=== PATIENT | male | born 1990 | race American Indian/Alaskan Native ===

== ENCOUNTER 2020-09-08 22:22 | Emergency (ER) | payer SELFPAY ==
[2020-09-08 23:11] VITALS: BP 134/63
--- NOTE | 2020-09-09 01:50 | Emergency Department Report ---
- General Chief Complaint: Fever Stated Complaint: FEVER/THROAT RASPY Time Seen by Provider: 09/09/20 00:22 Source: patient Mode of arrival: Ambulatory Limitations: No Limitations - History of Present Illness MD Complaint: sore throat, nasal congestion -: Gradual Severity: moderate Quality: dull Consistency: constant Improves With: nothing Worsens With: nothing Context: sick contacts Associated Symptoms: denies other symptoms. denies: chills, diaphoresis, headache, shortness of breath, abdominal pain, nausea, confusion, right sweats, weight loss, epistaxis, hoarseness Treatments Prior to Arrival: none - Related Data Previous Rx's Medication Instructions Recorded Last Taken Type Amoxicillin/Potassium Clav 1 each PO BID #14 tablet 09/09/20 Unknown Rx [Augmentin 875-125 Tablet] Lidocaine Viscous 2% 5 ml MM Q3HR PRN #120 udc 09/09/20 Unknown Rx ED Review of Systems ROS: Stated complaint: FEVER/THROAT RASPY Other details as noted in HPI Comment: All other systems reviewed and negative ED Past Medical Hx - Past Medical History Previous Medical History?: No - Surgical History Past Surgical History?: No - Social History Smoking Status: Current Every Day Smoker Substance Use Type: Alcohol - Medications Home Medications: Home Medications Medication Instructions Recorded Confirmed Last Taken Type Amoxicillin/Potassium Clav 1 each PO BID #14 tablet 09/09/20 Unknown Rx [Augmentin 875-125 Tablet] Lidocaine Viscous 2% 5 ml MM Q3HR PRN #120 udc 09/09/20 Unknown Rx ED Physical Exam - General Limitations: No Limitations General appearance: alert, in no apparent distress - Head Head exam: Present: atraumatic, normocephalic - Eye Eye exam: Present: normal appearance, PERRL, EOMI Pupils: Present: normal accommodation - ENT ENT exam: Present: mucous membranes moist, other (Pharynx has erythema with posterior pharyngeal drainage) - Neck Neck exam: Present: normal inspection - Respiratory Respiratory exam: Present: normal lung sounds bilaterally. Absent: respiratory distress - Cardiovascular Cardiovascular Exam: Present: regular rate, normal rhythm. Absent: systolic murmur, diastolic murmur, rubs, gallop - GI/Abdominal GI/Abdominal exam: Present: soft, normal bowel sounds - Rectal Rectal exam: Present: deferred - Extremities Exam Extremities exam: Present: normal inspection - Back Exam Back exam: Present: normal inspection - Neurological Exam Neurological exam: Present: alert, oriented X3 - Psychiatric Psychiatric exam: Present: normal affect, normal mood - Skin Skin exam: Present: warm, dry, intact, normal color. Absent: rash ED Course Vital Signs 09/08/20 23:05 Temperature 98.5 F Pulse Rate 94 H Respiratory 18 Rate Blood Pressure 134/63 O2 Sat by Pulse 98 Oximetry Critical care attestation.: If time is entered above; I have spent that time in minutes in the direct care of this critically ill patient, excluding procedure time. ED Disposition Disposition: [id number] TO HOME OR SELFCARE Condition: Stable Instructions: Upper Respiratory Infection, Adult, Upper Respiratory Infection, Adult, [id number] Prescriptions: Amoxicillin/Potassium Clav [Augmentin 875-125 Tablet] 1 each PO BID #14 tablet Lidocaine Viscous 2% 5 ml MM Q3HR PRN #120 udc PRN Reason: throat pain Referrals: [facility] [Provider Group] - 3-5 Days [facility], [Primary Care Provider] - 3-5 Days
[2020-09-09] MEDS ORDERED: IBUPROFEN 800 MG TAB PO ONE (02:15)
[2020-09-09] MEDS ORDERED: ACETAMINOPHEN W/CODEINE 300-30 MG TAB PO ONE (02:15)
== END 2020-09-09 02:20 | disposition home or self-care (01) ==
LOC: ED 22:22
DX: J02.9 Acute pharyngitis, unspecified (principal); R09.81 Nasal congestion; F17.200 Nicotine dependence, unspecified, uncomplicated; Z79.899 Other long term (current) drug therapy
CPT/HCPCS: 99282